=== PATIENT | male | born 1970 | race Caucasian/White ===

== ENCOUNTER 2017-11-04 10:24 | Emergency (ER) | payer OTHER ==
[~2017-11-04] VITALS: Ht 160 cm; Wt 71.2 kg
[2017-11-04 10:34] VITALS: Ht 160 cm; Wt 71.2 kg
[2017-11-04 11:04] VITALS: BP 146/92
== END 2017-11-04 11:04 | disposition home or self-care (01) ==
LOC: ED 10:24
DX: J30.9 Allergic rhinitis, unspecified (principal); J02.9 Acute pharyngitis, unspecified; R11.10 Vomiting, unspecified; R19.7 Diarrhea, unspecified; Z88.0 Allergy status to penicillin